=== PATIENT | female | born 1950 | race Caucasian/White ===

== ENCOUNTER → 2017-07-14 | Outpatient (CLI) | payer MEDICARE, OTHER ==
--- NOTE | 2017-07-14 11:42 | RAD ---
Indication: Right ankle pain. Time of exam 11:22 AM 2 views of the right ankle were obtained. Ankle mortise is well-maintained. The talar dome is smooth. Small well-corticated osseous densities are noted adjacent to the medial malleolus consistent with old avulsions. No acute fracture is seen. There is a large plantar calcaneal spur. Impression: Chronic changes. No acute abnormality is detected.
== END | disposition home or self-care (01) ==
LOC: PMG 11:15
PROVIDERS: ATTEND Nurse Practitioner Family
DX: M77.31 Calcaneal spur, right foot (principal)
CPT/HCPCS: 73600

== ENCOUNTER → 2017-07-20 | Outpatient (CLI) | payer OTHER ==
[2017-07-20 09:52] LABS: BASO # 0.1 x10^3/uL (0.0-0.2); BASO % 1 % (0-3); EOS # 0.1 x10^3/uL (0.0-0.7); EOS % 1 % (0-3); HEMATOCRIT 44.7 % (36.0-47.0); HEMOGLOBIN 15.1 g/dL (12.0-15.5); LYMPH # 3.8 x10^3/uL (1.0-4.8); LYMPH % 32 % (24-48); MEAN CORPUSCULAR HEMOGLOBIN 30 pg (25-35); MEAN CORPUSCULAR HGB CONC 34 g/dL (31-37); MEAN CORPUSCULAR VOLUME 88 fL (79-100); MONO # 0.6 x10^3/uL (0.0-1.1); MONO % 5 % (0-9); NEUT # 7.3 x10^3uL (1.8-7.7); NEUT % 61 % (31-73); PLATELET COUNT 366 x10^3/uL (140-400); RED BLOOD COUNT 5.09 x10^6/uL (3.50-5.40); RED CELL DISTRIBUTION WIDTH 14.4 % (11.5-14.5)
[2017-07-20 10:05] LABS: ALBUMIN 3.5 g/dL (3.4-5.0); ALBUMIN/GLOBULIN RATIO 0.9 (1.0-1.7); CALCIUM 9.1 mg/dL (8.5-10.1); CREATININE 0.8 mg/dL (0.6-1.0); POTASSIUM 4.4 mmol/L (3.5-5.1); TOTAL BILIRUBIN 0.4 mg/dL (0.2-1.0); TOTAL PROTEIN 7.4 g/dL (6.4-8.2)
--- NOTE | 2017-07-20 10:55 | RAD ---
DATE: July 20, 2017 EXAM: DIGITAL SCREEN BILAT W/CAD HISTORY: Screening baseline study. Positive family history of breast cancer. COMPARISON: None. This study was interpreted with the benefit of Computerized Aided Detection (CAD). FINDINGS: The breast parenchyma is replaced with adipose tissue. There are no dominant suspicious masses, suspicious microcalcifications or evidence of architectural distortion. IMPRESSION: No mammographic indicators for malignancy. BI-RADS CATEGORY: 1 NEGATIVE RECOMMENDED FOLLOW-UP: 12M 12 MONTH FOLLOW-UP PQRS compliance statement: Patient information was entered into a reminder system with a target due date July 21, 2018 for the next mammogram. Mammography is a sensitive method for finding small breast cancers, but it does not detect them all and is not a substitute for careful clinical examination. A negative mammogram does not negate a clinically suspicious finding and should not result in delay in biopsying a clinically suspicious abnormality. "Our facility is accredited by the [employer] Mammography [employer]." The patient's breast density may affect the ability of mammography to detect breast cancer. There are 4 categories of breast density, A, B, C and D. Breast density A means that most of the breast tissue is replaced with adipose tissue and therefore is not dense. Breast density B means that the breast tissue is mildly dense and scattered. Breast density C means that the breast tissue is heterogeneously dense. Breast density D means that the breast tissue is very dense. Breast densities especially C and D may decrease the sensitivity of mammography to detect breast cancer. Therefore, the patient may benefit from 3-D breast mammography (3D breast tomography) as a part of their screening mammogram. Insurance may or may not pay for this additional imaging. The patient's breast density based on today's mammogram is category A.
[2017-07-20 11:27] LABS: BACTERIA,URINE 0 /HPF (0-FEW); BILIRUBIN,URINE NEG (NEG); CLARITY,URINE CLEAR; COLOR,URINE YELLOW; GLUCOSE,URINE NEG (NEG); NITRITE,URINE NEG (NEG); RBC,URINE 0 /HPF (0-2); SQUAMOUS EPITHELIAL CELL,UR OCC /LPF; UROBILINOGEN,URINE 0.2 mg/dL (0.2 mg/dL); WBC,URINE 0 /HPF (0-4)
--- NOTE | 2017-07-20 12:57 | RAD ---
DATE: July 20, 2017 EXAM: DIGITAL SCREEN BILAT W/CAD HISTORY: Screening baseline study. Positive family history of breast cancer. COMPARISON: None. This study was interpreted with the benefit of Computerized Aided Detection (CAD ). FINDINGS: The breast parenchyma is replaced with adipose tissue. There are no dominant suspicious masses, suspicious microcalcifications or evidence of architectural distortion. IMPRESSION: No mammographic indicators for malignancy. BI-RADS CATEGORY: 1 NEGATIVE RECOMMENDED FOLLOW-UP: 12M 12 MONTH FOLLOW-UP PQRS compliance statement: Patient information was entered into a reminder system with a target due date July 21, 2018 for the next mammogram. Mammography is a sensitive method for finding small breast cancers, but it does not detect them all and is not a substitute for careful clinical examination. A negative mammogram does not negate a clinically suspicious finding and should not result in delay in biopsying a clinically suspicious abnormality. "Our facility is accredited by the [employer] Mammography [employer]." The patient's breast density may affect the ability of mammography to detect breast cancer. There are 4 categories of breast density, A, B, C and D. Breast density A means that most of the breast tissue is replaced with adipose tissue and therefore is not dense. Breast density B means that the breast tissue is mildly dense and scattered. Breast density C means that the breast tissue is heterogeneously dense. Breast density D means that the breast tissue is very dense. Breast densities especially C and D may decrease the sensitivity of mammography to detect breast cancer. Therefore, the patient may benefit from 3- D breast mammography (3D breast tomography) as a part of their screening mammogram. Insurance may or may not pay for this additional imaging. The patient 's breast density based on today's mammogram is category A. MTDD
[2017-07-20 14:27] LABS: FREE T4 0.92 ng/dL (0.76-1.46); THYROID STIM HORMONE (TSH) 1.371 uIU/mL (0.358-3.740)
== END | disposition home or self-care (01) ==
LOC: MAMMO 09:21
PROVIDERS: ATTEND Nurse Practitioner Family
DX: Z12.31 Encounter for screening mammogram for malignant neoplasm of breast (principal); Z00.01 Encounter for general adult medical examination with abnormal findings; Z80.3 Family history of malignant neoplasm of breast; R79.89 Other specified abnormal findings of blood chemistry
CPT/HCPCS: 36415; 77063; 80053; 80061; 81001; 84439; 84443; 85025; G0202; 77067

== ENCOUNTER → 2018-04-04 | Outpatient (CLI) | payer OTHER ==
--- NOTE | 2018-04-04 16:02 | RAD ---
Right foot, 3 views, 04/04/2018: HISTORY: Swelling and pain No fracture or dislocation is identified. There are minimal degenerative changes at scattered interphalangeal joints and the first MTP joint. There is a small inferior calcaneal spur. There is mild subcutaneous edema. IMPRESSION: No acute bony abnormality is detected. Right ankle, 3 views, 04/04/2018: Slight cortical regularity involving the tip of the medial malleolus is compatible with old trauma. No recent fracture or dislocation is identified. There is mild Achilles tendon calcification near its inferior insertion site. There is mild subcutaneous edema. IMPRESSION: No acute bony abnormality is detected. Electronically signed by: Alverto Carlos MD (04/04/2018 3:59 PM) [facility]
== END | disposition home or self-care (01) ==
LOC: DXRAD 10:13
PROVIDERS: ATTEND Orthopaedic Surgery Sports Medicine
DX: M65.871 Other synovitis and tenosynovitis, right ankle and foot (principal); R60.0 Localized edema; Z80.3 Family history of malignant neoplasm of breast
CPT/HCPCS: 73610; 73630

== ENCOUNTER → 2018-07-10 | Outpatient (CLI) | payer OTHER ==
--- NOTE | 2018-07-10 10:14 | RAD ---
Right lower extremity venous doppler ultrasound History: Right leg pain Comparison: None Findings: Multiple grayscale, color, and duplex spectral analysis sonographic images were acquired of the right lower extremity veins to evaluate for the presence of DVT. There is normal phasicity. Normal compression, color-flow, and augmentation is demonstrated from the right common femoral to the popliteal veins. There is normal color flow of the proximal greater saphenous vein. There is normal color flow of segments of the calf veins. Impression: 1. There is no evidence of deep venous thrombosis from the right common femoral to popliteal veins. Electronically signed by: Dionisio Unger MD (07/10/2018 10:11 AM) [id number]
== END | disposition home or self-care (01) ==
LOC: US 09:10
PROVIDERS: ATTEND Physician Assistant Medical
DX: M76.821 Posterior tibial tendinitis, right leg (principal); M79.661 Pain in right lower leg
CPT/HCPCS: 93971

== ENCOUNTER → 2020-08-08 | Outpatient (CLI) | payer MEDICARE ==
--- NOTE | 2020-08-08 09:58 | RAD ---
XR KNEE_LT 1-2 VIEWS, XR KNEE_AP BILAT STANDING 08/08/2020 8:40 AM INDICATION: Left knee pain COMPARISON: None available. TECHNIQUE: 3 views of the left knee are provided including a standing comparison view the right knee . FINDINGS/ IMPRESSION: 1. There is a moderate knee joint effusion. 2. There is mild patellofemoral and medial femorotibial joint space narrowing with moderate lateral f emorotibial joint space scarring with subcortical sclerosis and marginal osteophytosis compatible wit h mild to moderate osteoarthrosis. 3. No acute fracture or dislocation. 4. 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 Electronically signed by: Nadia Butcher MD (08/08/2020 9:55 AM) [id number]
== END ==
LOC: DXRAD 08:26
PROVIDERS: ATTEND Physician Assistant
DX: M17.12 Unilateral primary osteoarthritis, left knee (principal); M25.461 Effusion, right knee; M25.761 Osteophyte, right knee; M81.8 Other osteoporosis without current pathological fracture
CPT/HCPCS: 73560; 73565

== ENCOUNTER → 2020-10-07 | Outpatient (CLI) | payer MEDICARE ==
--- NOTE | 2020-10-07 15:35 | RAD ---
4 views the cervical spine without comparison for neck pain. FINDINGS: There is no fracture or acute osseous or alignment abnormality. There is multilevel degener ative change most notably at C5-6. The area below C6-7 is not well seen. Prevertebral soft tissues ar e grossly unremarkable. There is bulky calcified atherosclerosis in the left internal carotid artery. IMPRESSION: 1. No acute osseous or alignment abnormality. 2. Multilevel degenerative changes primarily at the lower cervical spine. 3. Bulky calcified atherosclerosis on the left. Electronically signed by: Gianluca Leon MD (10/07/2020 3:32 PM) [id number]
--- NOTE | 2020-10-07 15:36 | RAD ---
2 views of each humerus without comparison for pain in the bilateral arms. FINDINGS: There is no fracture or acute osseous abnormality involving either humerus. There are small benign degenerative cyst in the humeral heads. Glenohumeral joints are grossly unremarkable bilatera llfawad. IMPRESSION: 1. No significant abnormality of either humerus. Electronically signed by: Gianluca Leon MD (10/07/2020 3:33 PM) [id number]
== END ==
LOC: DXRAD 14:11
PROVIDERS: ATTEND Physician Assistant Medical
DX: M47.812 Spondylosis without myelopathy or radiculopathy, cervical region (principal); M79.622 Pain in left upper arm; M79.621 Pain in right upper arm
CPT/HCPCS: 72040; 73060